=== PATIENT | female | born 1935 | race Caucasian/White ===

== ENCOUNTER → 2016-07-21 | Outpatient (CLI) | payer MEDICARE, BC | LOC: LAB 12:02 | DX: I10 Essential (primary) hypertension (principal) ==

== ENCOUNTER → 2016-07-23 | Outpatient (CLI) | payer MEDICARE, BC | LOC: LAB 11:27 | DX: R41.0 Disorientation, unspecified (principal); I25.10 Atherosclerotic heart disease of native coronary artery without angina pectoris ==

== ENCOUNTER → 2020-02-20 | Outpatient (CLI) | payer MEDICARE, BC | LOC: RAD 12:58 | DX: E04.1 Nontoxic single thyroid nodule (principal) ==

== ENCOUNTER → 2021-08-12 | Outpatient (CLI) | payer MEDICARE, BC | LOC: RAD 13:37 → MAMMO 13:45 → RAD 13:45 | DX: M47.816 Spondylosis without myelopathy or radiculopathy, lumbar region (principal); M16.0 Bilateral primary osteoarthritis of hip; Z78.0 Asymptomatic menopausal state ==

== ENCOUNTER → 2022-01-29 | Outpatient (CLI) | payer MEDICARE, BC | LOC: RAD 08:15 | DX: I65.23 Occlusion and stenosis of bilateral carotid arteries (principal); H54.62 Unqualified visual loss, left eye, normal vision right eye ==

== ENCOUNTER → 2023-07-06 | Outpatient (CLI) | payer MEDICARE, BC | LOC: RAD 10:44 | DX: N83.201 Unspecified ovarian cyst, right side (principal) ==